=== PATIENT | female | born 2000 | race Caucasian/White ===

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

== ENCOUNTER → 2019-10-02 09:41 | Outpatient (CLI) | payer BC, OTHER | END | disposition home or self-care (01) | LOC: D.MRI 09:41 | PROVIDERS: ATTEND Specialist | DX: R41.82 Altered mental status, unspecified (principal) ==